=== PATIENT | female | born 2000 | race Caucasian/White ===

== ENCOUNTER 2022-02-14 07:51 | Outpatient (CLI) | payer OTHER | END 2022-02-14 07:52 | disposition home or self-care (01) | LOC: CSHLAB 07:51 | PROVIDERS: ATTEND Student in an Organized Health Care Education/Training Program | DX: Z20.822 Contact with and (suspected) exposure to COVID-19 (principal); O10.919 Unspecified pre-existing hypertension complicating pregnancy, unspecified trimester | CPT/HCPCS: U0003; U0005 ==

== ENCOUNTER 2022-02-17 17:56 | Inpatient (IN) | payer OTHER ==
[~2022-02-17 17:56] MED LIST: Bupivacaine 0.25% HCL 30 ML VIAL ONE; Bupivacaine/Epinephrine 0.25% 30 ML VIAL ONE
[2022-02-17] MEDS ORDERED: Acetaminophen 500 MG TAB PO PRN (18:31)
[2022-02-17] MEDS ORDERED: Lidocaine 1% (PF) 30 ML VIAL SC PRN (18:31)
[2022-02-17] MEDS ORDERED: hydrALAZINE 20 MG/ML VIAL SLOW IVP PRN (18:31)
[2022-02-17] MEDS ORDERED: Diphenoxylate HCl/Atropine Tablet PO PRN (18:31)
[2022-02-17] MEDS ORDERED: Ibuprofen 800 MG TAB PO PRN (18:31)
[2022-02-17] MEDS ORDERED: Carboprost 250 MCG/ML AMP IM PRN (18:31)
[2022-02-17] MEDS ORDERED: Misoprostol 200 MCG TAB PR PRN (18:31)
[2022-02-17] MEDS ORDERED: Ondansetron PF 4 MG/2 ML Vial IVP PRN (18:31)
[2022-02-17] MEDS ORDERED: Promethazine HCl 25 MG/ML VIAL IM PRN (18:31)
[2022-02-17 18:38] VITALS: BMI 35.6
[2022-02-17] MEDS ORDERED: Misoprostol 100 MCG TAB VAG SCH (18:45)
[2022-02-17] MEDS ORDERED: Lactated Ringer's 1,000 ML IV SCH (18:45)
[2022-02-17] MEDS ORDERED: NS w/ Oxytocin 30 units 500 ML IV SCH ×2 (18:45)
[2022-02-17 19:22] LABS: Hemoglobin 11.7 g/dL (12.0-15.5); Mean Corpuscular HGB CONC 34.2 g/dL (32.0-36.0); Mean Corpuscular Hemoglobin 25.8 pg (27.0-33.0); Mean Corpuscular Volume 75.5 fl (81.6-98.3); Mean Platelet Volume 11.2 fl (7.4-10.4); Platelet Count 368 10x3/uL (150-450); RBC Distribution Width 13.6 % (11.5-14.5); Red Blood Cell (RBC) Count 4.53 10x6/uL (3.90-5.03); White Blood Cell (WBC) Count 12.3 10x3/uL (3.5-10.5)
[2022-02-17 19:37] LABS: ALT (SGPT) 7 U/L (8-55); AST (SGOT) 10 U/L (5-34); Albumin 3.3 g/dL (3.5-5.0); Alkaline Phosphatase 251 U/L (40-100); Anion Gap 17 mmol/L (10-20); BUN (Urea Nitrogen) 8 mg/dL (7.0-18.7); Bilirubin, Total 0.2 mg/dL (0.2-1.2); Calc. Creatinine Clearance 167 mL/min (70-130); Calcium 9.4 mg/dL (7.8-10.44); Carbon Dioxide 19 mmol/L (22-29); Chloride 104 mmol/L (98-107); Globulin 3.3 g/dL (2.4-3.5); Glucose 88 mg/dL (70-105); Potassium 4.3 mmol/L (3.5-5.1); Protein, Total 6.6 g/dL (6.0-8.3); Sodium 136 mmol/L (136-145)
[2022-02-17 19:55] LABS: Hep B Surf Ag Non-Reactive S/CO (NonReactive); Syphilis Antibody Nonreactive (Nonreactive); Syphilis Antibody Index 0.02 S/CO (<1.00 Non-Reactive)
[2022-02-17 19:58] LABS: HBSAg Index 0.14 S/CO (0-0.99)
[2022-02-17] MEDS ORDERED: Azithromycin 250 MG TAB PO SCH (20:00)
[2022-02-17] MEDS: Butorphanol Tartrate 1 MG/ML VIAL SLOW IVP PRN ×2 (22:13→23:13)
[2022-02-18] MEDS: Butorphanol Tartrate 1 MG/ML VIAL SLOW IVP PRN ×3 (00:22→04:21)
[2022-02-18] MEDS ORDERED: Fentanyl 2 mcg/Bup 0.1% Cadd 100 ML ONE ×2 (05:11→13:36)
[2022-02-18] MEDS ORDERED: Lactated Ringer's 500 ML IV PRN (06:12)
[2022-02-18] MEDS ORDERED: diphenhydrAMINE 50 MG/ML VIAL IVP PRN (06:12)
[2022-02-18] MEDS ORDERED: Acetaminophen 325 MG TAB PO PRN (06:12)
[2022-02-18] MEDS ORDERED: Promethazine HCl 25 MG/ML VIAL IM PRN (06:12)
[2022-02-18] MEDS ORDERED: ePHEDrine Sulfate 50 MG/10 ML VIAL SLOW IVP PRN (06:12)
[2022-02-18] MEDS ORDERED: Ondansetron PF 4 MG/2 ML Vial IVP PRN ×2 (06:12→16:47)
[2022-02-18] MEDS ORDERED: Moisturizing Cream (Eucerin) 113 GM JAR TOP PRN (06:12)
[2022-02-18] MEDS ORDERED: Naloxone HCl 0.4 mg/ml Vial IVP PRN ×2 (06:12)
[2022-02-18] MEDS ORDERED: Fentanyl 2 mcg/Bupivacaine 0.1% Cassette 100 ML EPIDURAL SCH (06:15)
[2022-02-18] MEDS ORDERED: Communication Order-Pharmacy FS SCH (06:15)
[2022-02-18] MEDS ORDERED: Labetalol HCl 100 MG TAB PO SCH (09:00)
[2022-02-18] MEDS ORDERED: Milk Of Magnesia 30 ML UDCUP PO PRN (16:47)
[2022-02-18] MEDS ORDERED: Bisacodyl 10 MG SUPP PR PRN (16:47)
[2022-02-18] MEDS ORDERED: hydrALAZINE 20 MG/ML VIAL SLOW IVP PRN (16:47)
[2022-02-18] MEDS: Ferrous Sulfate 325 MG TAB PO SCH (19:40)
[2022-02-18] MEDS: Docusate 100 MG CAP PO SCH (19:46)
[2022-02-18] MEDS: Ibuprofen 800 MG TAB PO PRN (19:46)
[2022-02-18] MEDS: Labetalol HCl 100 MG TAB PO SCH (21:10)
[2022-02-19] MEDS: Acetaminophen 325 MG TAB PO PRN ×3 (00:05→12:21)
[2022-02-19] MEDS: Ibuprofen 800 MG TAB PO PRN ×3 (03:59→21:38)
[2022-02-19] MEDS: Docusate 100 MG CAP PO SCH ×2 (08:39→21:37)
[2022-02-19] MEDS: Labetalol HCl 100 MG TAB PO SCH ×2 (08:39→21:38)
[2022-02-19] MEDS: Ferrous Sulfate 325 MG TAB PO SCH ×2 (09:47→16:04)
[2022-02-19] MEDS ORDERED: Boostrix 0.5 ML (Tdap) VIAL IM ONE (16:47)
[2022-02-19] MEDS ORDERED: Benzocaine-Menthol 82.5 ML CAN TOP PRN (23:36)
[2022-02-20] MEDS: Acetaminophen 325 MG TAB PO PRN (03:01)
[2022-02-20] MEDS: Ibuprofen 800 MG TAB PO PRN (05:49)
[2022-02-20 07:51] VITALS: BP 123/77; TEMP 97.6
[2022-02-20] MEDS: Ferrous Sulfate 325 MG TAB PO SCH (08:11)
[2022-02-20] MEDS: Labetalol HCl 100 MG TAB PO SCH (08:12)
[2022-02-20] MEDS: Docusate 100 MG CAP PO SCH (08:12)
== END 2022-02-20 11:30 | disposition home or self-care (01) | DRG 806 ==
LOC: CSHLD 17:56 → CSHPP 02-18 18:20
PROVIDERS: ADMIT Student in an Organized Health Care Education/Training Program; ATTEND Student in an Organized Health Care Education/Training Program
PROC: 0U7C7ZZ Dilation of Cervix, Via Natural or Artificial Opening (ICD-10-PCS; 2022-02-17)
PROC: 10907ZC Drainage of Amniotic Fluid, Therapeutic from Products of Conception, Via Natural or Artificial Opening (ICD-10-PCS; 2022-02-18)
PROC: 10H07YZ Insertion of Other Device into Products of Conception, Via Natural or Artificial Opening (ICD-10-PCS; 2022-02-18)
PROC: 10E0XZZ Delivery of Products of Conception, External Approach (ICD-10-PCS; principal; 2022-02-19)
PROC: 0KQM0ZZ Repair Perineum Muscle, Open Approach (ICD-10-PCS; 2022-02-19)
DX: O10.92 Unspecified pre-existing hypertension complicating childbirth (principal); O99.324 Drug use complicating childbirth; Z37.0 Single live birth; O98.82 Other maternal infectious and parasitic diseases complicating childbirth; Z3A.39 39 weeks gestation of pregnancy; F12.90 Cannabis use, unspecified, uncomplicated; A74.9 Chlamydial infection, unspecified; F41.1 Generalized anxiety disorder; F31.9 Bipolar disorder, unspecified; O99.344 Other mental disorders complicating childbirth; Z79.899 Other long term (current) drug therapy; O76 Abnormality in fetal heart rate and rhythm complicating labor and delivery; O70.1 Second degree perineal laceration during delivery; O69.81X0 Labor and delivery complicated by cord around neck, without compression, not applicable or unspecified
CPT/HCPCS: 36415; 51702; 80053; 85027; 86780; 86850; 86900; 86901; 87340; J0595; J2590; S0020

== ENCOUNTER 2023-09-15 17:55 | Inpatient (IN) | payer OTHER ==
[~2023-09-15 17:55] MED LIST changes: -Bupivacaine 0.25% HCL 30 ML VIAL ONE; -Bupivacaine/Epinephrine 0.25% 30 ML VIAL ONE; +ePHEDrine Sulfate 50 MG/10 ML VIAL ONE
[2023-09-15 18:36] VITALS: BMI 38.0
[2023-09-15] MEDS ORDERED: hydrALAZINE 20 MG/ML VIAL SLOW IVP PRN ×3 (19:07→21:32)
[2023-09-15 20:02] LABS: #Eosinphils 0.1 10x3/uL (0.0-0.5); #Monocytes 0.6 10x3/uL (0.0-1.1); #Neutrophils 6.3 10x3/uL (1.5-8.4); %Basophils 0.3 % (0.0-2.0); %Eosinophils 0.8 % (0.0-6.0); %Lymphocytes 22.7 % (18.0-47.0); %Monocytes 6.1 % (0.0-10.0); %Neutrophils 69.2 % (40.0-75.0); Hematocrit 33.5 % (34.9-44.5); Hemoglobin 11.2 g/dL (12.0-15.5); Mean Corpuscular HGB CONC 33.4 g/dL (32.0-36.0); Mean Corpuscular Hemoglobin 25.3 pg (27.0-33.0); Mean Corpuscular Volume 75.8 fl (81.6-98.3); Mean Platelet Volume 11.2 fl (7.4-10.4); Platelet Count 348 10x3/uL (150-450); RBC Distribution Width 13.2 % (11.5-14.5); Red Blood Cell (RBC) Count 4.42 10x6/uL (3.90-5.03); White Blood Cell (WBC) Count 9.1 10x3/uL (3.5-10.5)
[2023-09-15 20:04] LABS: ALT (SGPT) 9 U/L (8-55); AST (SGOT) 15 U/L (5-34); Albumin 3.3 g/dL (3.5-5.0); Alkaline Phosphatase 191 U/L (40-110); Anion Gap 14 mmol/L (10-20); BUN (Urea Nitrogen) 6 mg/dL (7.0-18.7); Bilirubin, Total 0.4 mg/dL (0.2-1.2); Calc. Creatinine Clearance 191 mL/min (70-130); Calcium 9.4 mg/dL (7.8-10.44); Carbon Dioxide 21 mmol/L (22-29); Chloride 104 mmol/L (98-107); Estimated GFR 118; Globulin 3.7 g/dL (2.4-3.5); Glucose 84 mg/dL (70-105); Sodium 135 mmol/L (136-145)
[2023-09-15 20:14] LABS: Creatinine, Urine 81.97 mg/dL (47-110); Protein, Urine Random Quant Less than 10 mg/dL (1-14)
[2023-09-15] MEDS ORDERED: Lorazepam 2 MG/ML VIAL SLOW IVP PRN (21:31)
[2023-09-15] MEDS ORDERED: Labetalol HCl 100 MG/20 ML VIAL SLOW IVP PRN ×3 (21:31)
[2023-09-15] MEDS ORDERED: Calcium Gluc 4.6 MEQ/10 ML (100 MG/ML) SLOW IVP PRN (21:31)
[2023-09-15] MEDS ORDERED: Ondansetron PF 4 MG/2 ML Vial IVP PRN (21:32)
[2023-09-15] MEDS ORDERED: Lidocaine 1% (PF) 30 ML VIAL SC PRN (21:32)
[2023-09-15] MEDS ORDERED: Promethazine HCl 25 MG/ML VIAL IM PRN (21:32)
[2023-09-15] MEDS ORDERED: Labetalol HCl 100 MG/20 ML VIAL ONE (21:33)
[2023-09-15] MEDS ORDERED: Magnesium Sulfate 20 gm/500 ml 20 GM/500 ML BAG ONE (21:33)
[2023-09-15] MEDS ORDERED: Acetaminophen 500 MG TAB PO PRN (21:33)
[2023-09-15] MEDS ORDERED: NIFEdipine 10 MG CAP ONE (21:36)
[2023-09-15] MEDS ORDERED: Oxytocin 30 units/NS 500 ML 500 ML IV SCH (21:45)
[2023-09-15] MEDS ORDERED: Ibuprofen 800 MG TAB PO PRN (22:43)
[2023-09-15] MEDS ORDERED: Misoprostol 200 MCG TAB PR PRN (22:46)
[2023-09-15] MEDS ORDERED: Tranexamic Acid 1,000 MG/10 ML VIAL IVP PRN (22:46)
[2023-09-15 22:52] LABS: HBSAg Index 0.18 S/CO (0-0.99); Hep B Surf Ag - L&D Non-Reactive S/CO (NonReactive)
[2023-09-15 22:54] LABS: Syphilis Antibody Nonreactive (Nonreactive); Syphilis Antibody Index 0.02 S/CO (<1.00 Non-Reactive)
[2023-09-15] MEDS: Misoprostol 100 MCG TAB VAG SCH (23:03)
[2023-09-16] MEDS: Oxytocin 30 units/NS 500 ML 500 ML IV SCH ×2 (03:51→07:28)
[2023-09-16] MEDS ORDERED: fentaNYL/Ropivacaine Epidural 100 ML ONE (04:17)
[2023-09-16] MEDS: Magnesium Sulfate 20 gm/500 ml 20 GM/500 ML BAG IVPB SCH ×2 (04:43→16:17)
[2023-09-16] MEDS: Lactated Ringer's 1,000 ML IV SCH ×2 (05:07→05:22)
[2023-09-16] MEDS ORDERED: PHENYLEPHRINE-NS 100 MCG/ML 10 ML SYRINGE ONE ×2 (05:10→05:53)
[2023-09-16] MEDS ORDERED: ePHEDrine Sulfate 50 MG/10 ML VIAL SLOW IVP PRN (05:17)
[2023-09-16] MEDS ORDERED: Acetaminophen 325 MG TAB PO PRN (05:17)
[2023-09-16] MEDS ORDERED: Lactated Ringer's 500 ML IV PRN (05:17)
[2023-09-16] MEDS ORDERED: diphenhydrAMINE 50 MG/ML VIAL IVP PRN (05:17)
[2023-09-16] MEDS ORDERED: Ondansetron PF 4 MG/2 ML Vial IVP PRN ×2 (05:17→09:41)
[2023-09-16] MEDS ORDERED: Moisturizing Cream (Eucerin) 113 GM JAR TOP PRN (05:17)
[2023-09-16] MEDS ORDERED: Promethazine HCl 25 MG/ML VIAL IM PRN (05:17)
[2023-09-16] MEDS ORDERED: Naloxone HCl 0.4 mg/ml Vial IVP PRN ×2 (05:17)
[2023-09-16] MEDS ORDERED: Communication Order-Pharmacy FS SCH (05:30)
[2023-09-16] MEDS ORDERED: fentaNYL 2 mcg/Ropivacaine 0.2% Epidural 100 ML CADD EPIDURAL SCH (05:30)
[2023-09-16] MEDS ORDERED: Preparation H Ointment 28 GM TUBE PR PRN (09:41)
[2023-09-16] MEDS ORDERED: Boostrix 0.5 ML (Tdap) VIAL (>/=7 yrs of age) IM ONE (09:41)
[2023-09-16] MEDS ORDERED: Bisacodyl 10 MG SUPP PR PRN (09:41)
[2023-09-16] MEDS ORDERED: Milk Of Magnesia 30 ML UDCUP PO PRN (09:41)
[2023-09-16] MEDS ORDERED: hydrALAZINE 20 MG/ML VIAL SLOW IVP PRN (09:41)
[2023-09-16] MEDS ORDERED: Benzocaine-Menthol 82.5 ML CAN TOP PRN (09:41)
[2023-09-16] MEDS ORDERED: Lanolin Ointment 7 GM TUBE TOP PRN (09:41)
[2023-09-16] MEDS ORDERED: Measles/Mumps/Rubella 10 MCG/0.5 ML VIAL SC ONE (09:41)
[2023-09-16] MEDS: Ferrous Sulfate 325 MG TAB PO SCH (19:20)
[2023-09-16] MEDS: Ibuprofen 800 MG TAB PO SCH ×2 (19:20→21:02)
[2023-09-16] MEDS: Misoprostol 100 MCG TAB VAG SCH (19:22)
[2023-09-16] MEDS: Docusate 100 MG CAP PO SCH (21:03)
[2023-09-17] MEDS ORDERED: Measles/Mumps/Rubella 10 MCG/0.5 ML VIAL SC ONE (06:50)
[2023-09-17] MEDS: Ibuprofen 800 MG TAB PO SCH ×3 (08:30→23:23)
[2023-09-17] MEDS ORDERED: Labetalol HCl 100 MG TAB PO SCH (10:30)
[2023-09-17] MEDS: Prenatal Vitamin 1 TAB PO SCH (10:36)
[2023-09-17] MEDS: Docusate 100 MG CAP PO SCH ×2 (10:38→21:29)
[2023-09-17] MEDS: Ferrous Sulfate 325 MG TAB PO SCH ×2 (13:02→17:03)
[2023-09-17] MEDS: Labetalol HCl 100 MG TAB PO SCH (21:29)
[2023-09-18] MEDS: Ferrous Sulfate 325 MG TAB PO SCH (07:20)
[2023-09-18] MEDS: Labetalol HCl 100 MG TAB PO SCH (08:54)
[2023-09-18] MEDS: Ibuprofen 800 MG TAB PO SCH (08:54)
[2023-09-18] MEDS: Prenatal Vitamin 1 TAB PO SCH (08:54)
[2023-09-18] MEDS: Docusate 100 MG CAP PO SCH (08:54)
[2023-09-18 12:09] VITALS: TEMP 98.3
[2023-09-18 18:09] VITALS: BP 134/79
== END 2023-09-18 16:15 | disposition home or self-care (01) | DRG 807 ==
LOC: CSHLD/OP 17:55 → CSHLD 21:41 → CSHPP 09-17 10:44
PROVIDERS: ADMIT Obstetrics & Gynecology; ATTEND Obstetrics & Gynecology
PROC: 10E0XZZ Delivery of Products of Conception, External Approach (ICD-10-PCS; principal; 2023-09-16)
PROC: 3E033XZ Introduction of Vasopressor into Peripheral Vein, Percutaneous Approach (ICD-10-PCS; 2023-09-16)
DX: O13.4 Gestational [pregnancy-induced] hypertension without significant proteinuria, complicating childbirth (principal); Z37.0 Single live birth; O24.429 Gestational diabetes mellitus in childbirth, unspecified control; Z3A.38 38 weeks gestation of pregnancy; O14.15 Severe pre-eclampsia, complicating the puerperium
CPT/HCPCS: 36415; 51702; 76819; 80053; 82570; 84156; 85025; 86780; 86850; 86900; 86901; 87340; 99285; J2405; J2590; J3475; J7120